=== PATIENT | male | born 1965 | race Hispanic/Latino ===

== ENCOUNTER 2019-01-25 15:53 | Inpatient (IN) | payer BC ==
[~2019-01-25] VITALS: Ht 170.2 cm; Wt 140.2 kg
[~2019-01-25 15:53] MED LIST: AZITHROMYCIN250 MG PO; TAMIFLU75 MG PO
--- OUTSIDE RECORDS SUMMARY | 2019-01-25 15:56 | XMS REPORT ---
[facility] Address Unknown Phone Unavailable Care Team Providers Care Tape Transferrer Name Role Phone Maria R CENTENO Unavailable Unavailable Problems This patient has no known problems. Allergies, Adverse Reactions, Alerts This patient has no known allergies or adverse reactions. Medications This patient has no known medications. Results Test Description Test Time Test Comments Text Results Atomic Results Result Comments CXR 1 [facility] 2019-01-22 07:52:00 [facility] [address] [place] [address] Patient Name: MABEL SHAW MR #: [id number] : 1965 Age/Sex: 53/M Req #: [id number] Adm Physician: Ordered by: HERIBERTO CENTENO MD Report #: [id number] Location: [facility] Room/Bed: Procedure: [id number] HOPD/CXR 1 [facility] Exam Date: 01/22/19 Exam Time: 0751 REPORT STATUS: Signed EXAMINATION: CXR 1 [facility] INDICATION: Short of breath COMPARISON: None FINDINGS: TUBES and LINES: None. LUNGS: Lungs are well inflated. Hazy airspace opacities in the right lower lung and possibly in the left lower lung. PLEURA: No pleural effusion or pneumothorax. HEART AND MEDIASTINUM: The cardiomediastinal silhouette is unremarkable. BONES AND SOFT TISSUES: No acute osseous lesion. Soft tissues are unremarkable. UPPER ABDOMEN: No free air under the diaphragm. IMPRESSION: Findings suspicious for multifocal pneumonia. Recommend follow-up chest radiograph in 6-8 weeks. Signed by: John Pimentel DO on 01/22/2019 7:54 AM Dictated By: JOHN PIMENTEL DO 3 Transcribed By: HOWIE on 01/22/19753 COPY TO: HERIBERTO CENTENO MD
[2019-01-25] MEDS: ALBUTEROL SULF 0.083% NEB SOLN 3 ML NEB NEB SCH (16:01)
[2019-01-25] MEDS ORDERED: AZITHROMYCIN 500MG/SOD CHL 0.9% 250ML BAG IV SCH (16:30)
[2019-01-25] MEDS ORDERED: CEFTRIAXONE SOD 1 GRAM/0.9% SOD CHL 50ML BAG IV SCH (16:30)
[2019-01-25] MEDS ORDERED: ACETAMINOPHEN 325 MG TAB ONE (16:37)
[2019-01-25] MEDS ORDERED: IBUPROFEN 400 MG TAB ONE (16:38)
[2019-01-25] MEDS ORDERED: SODIUM CHLORIDE 0.9% 1000ML 1,000 ML IV STA (16:56)
[2019-01-25] MEDS ORDERED: AZITHROMYCIN 500MG/NS 250 ML 250 ML IV SCH (17:00)
[2019-01-25] MEDS ORDERED: HEPARIN SOD (PORCINE) 5,000 UNIT/ML VIAL SC SCH (17:00)
[2019-01-25] MEDS ORDERED: ACETAMINOPHEN 325 MG TAB PO SCH (18:00)
[2019-01-25 18:01] LABS: BASOPHILS # (AUTO) 0.1 (0.0-0.1); BASOPHILS % 0.9 % (0.0-1.0); EOSINOPHILS # (AUTO) 0.2 (0.0-0.4); EOSINOPHILS % 1.5 % (0.0-6.0); HEMATOCRIT 39.3 % (38.2-49.6); HEMOGLOBIN 13.3 g/dL (14.0-18.0); LYMPHOCYTES # (AUTO) 1.5 (1.0-3.2); LYMPHOCYTES % 15.1 % (18.0-39.1); MEAN CORPUSCULAR HEMOGLOBIN 30.1 pg (28-32); MEAN CORPUSCULAR HGB CONC 33.8 g/dL (31-35); MEAN CORPUSCULAR VOLUME 88.9 fL (81-99); MONOCYTES # (AUTO) 0.6 (0.2-0.8); NEUTROPHILS # (AUTO) 7.5 (2.1-6.9); PLATELET COUNT 267 x10e3/uL (140-360); RED BLOOD COUNT 4.42 x10e6/uL (4.3-5.7); RED CELL DISTRIBUTION WIDTH 14.1 % (11.7-14.4)
[2019-01-25] MEDS: CEFTRIAXONE SOD 1 GM/NS 50 ML 50 ML IV SCH (18:01)
[2019-01-25] MEDS: SODIUM CHLORIDE 0.9% 1000ML 1,000 ML IV SCH (18:01)
[2019-01-25 18:27] LABS: ALANINE AMINOTRANSFERASE 36 IU/L (0-55); ALBUMIN 3.5 g/dL (3.5-5.0); ALBUMIN/GLOBULIN RATIO 0.9 (0.8-2.0); ALKALINE PHOSPHATASE 69 IU/L (40-150); ANION GAP 14.1 mmol/L (8-16); BLOOD UREA NITROGEN 13 mg/dL (7-26); BUN/CREATININE RATIO 11 (6-25); CARBON DIOXIDE 24 mmol/L (22-29); CHLORIDE 103 mmol/L (98-107); CREATININE, SERUM 1.19 mg/dL (0.72-1.25); EST GLOMERULAR FILTRATION RATE > 60 ML/MIN (60-); GLUCOSE 97 mg/dL (74-118); POTASSIUM 4.1 mmol/L (3.5-5.1); SODIUM 137 mmol/L (136-145)
[2019-01-25 20:00] VITALS: BP 144/85
[2019-01-25] MEDS ORDERED: SODIUM CHLORIDE 0.9% 50ML 50 ML ONE (20:14)
[2019-01-25] MEDS ORDERED: AMLODIPINE BESY10 MG PO (20:14)
[2019-01-25] MEDS ORDERED: STRATTERA40 MG PO (20:14)
[2019-01-25] MEDS ORDERED: BUPROPION HCL75 MG PO (20:14)
[2019-01-25] MEDS ORDERED: IOPAMIDOL 370 MG/ML 200 ML INFUS..BTL INJ ONE (20:14)
[2019-01-25] MEDS ORDERED: LOSARTAN POTAS100 MG PO (20:14)
[2019-01-25] MEDS ORDERED: ATORVASTATIN CA20 MG PO (20:14)
[2019-01-25] MEDS ORDERED: PAROXETINE HCL20 MG PO (20:14)
[2019-01-25] MEDS ORDERED: ALPRAZOLAM1 MG PO (20:14)
[2019-01-25] MEDS ORDERED: CEFDINIR300 MG PO (20:14)
--- NOTE | 2019-01-25 20:19 | Diagnostic Imaging Report ---
CT CHEST WITH CONTRAST HISTORY: Pneumonia, cough COMPARISON: Chest radiograph January 22, 2019. TECHNIQUE: CT scan of the chest WITH intravenous contrast, using standard protocol. Coronal and sagittal reformats are provided. IV CONTRAST: 100 cc of Isovue-370. RADIATION DOSE: Total DLP: 1262.09 mGy*cm Dose modulation, iterative reconstruction, and/or weight based adjustment of the mA/kV was utilized to reduce the radiation dose to as low as reasonably achievable. COMPLICATIONS: None FINDINGS: Lines/tubes: None. Lungs and Airways: Patchy interstitial and airspace opacities, most confluent within the left lower lobe, but also within the remaining lobes. Diffuse bronchial wall thickening. Pleura: The pleural spaces are clear. Heart and mediastinum: The thyroid gland is normal. The heart and pericardium are within normal limits. Abdomen: Limited evaluation of the upper abdomen. A 3 cm left adrenal nodule with macroscopic fat and an adjacent 2.9 cm nodule mass or ectopic fat. Scarring of the superior pole of the left kidney. Lap band and partially visualized tubing. Sliding hiatal hernia, containing the proximal stomach. The esophagus is patulous and fluid-filled. Lymph nodes: No pathologically enlarged lymph node identified. Vessels: Unremarkable. Bones: No acute osseous lesion is identified. Soft tissues: Unremarkable IMPRESSION: 1. Given the provided history, findings compatible with multifocal pneumonia. 2. Alternatively, given the sliding hiatal hernia, patulous and fluid-filled esophagus, in the absence of infection aspiration may be a consideration. 3. Two left adrenal myelolipoma. Signed by: Dr. Dakota Soto D.O., M.M.M. on 01/25/2019 8:16 PM
[2019-01-25 21:20] LABS: LYMPHOCYTES % (MANUAL) 13 % (19-48); MONOCYTES % (MANUAL) 3 % (3.4-9.0); MYELOCYTES % (MANUAL) 1 % (0-0); NEUTROPHILS % (MANUAL) 81 % (40-74); PLATELET ESTIMATE ADEQUATE; PLATELET MORPHOLOGY COMMENT NORMAL; RBC MORPHOLOGY COMMENT NORMAL
[2019-01-25 21:21] LABS: ANISOCYTOSIS SLIGHT
[2019-01-25 22:25] VITALS: BP 128/85
[2019-01-25 23:29] LABS: BILIRUBIN,URINE NEGATIVE (NEGATIVE); CLARITY,URINE CLEAR (CLEAR); COLOR,URINE YELLOW (YELLOW); KETONES,URINE NEGATIVE (NEGATIVE); LEUKOCYTE ESTERASE ,URINE NEGATIVE (NEGATIVE); NITRITE,URINE NEGATIVE (NEGATIVE); PROTEIN,URINE DIPSTICK NEGATIVE (NEGATIVE); URINE UROBILINOGEN 0.2 mg/dL (0.2 - 1)
[2019-01-25] MEDS ORDERED: ACETAMINOPHEN 325 MG TAB PO PRN (23:45)
[2019-01-25 23:51] LABS: BACTERIA,URINE RARE /HPF; RBC,URINE 0-5 /HPF (0-5); WBC,URINE (MAN) 0-5 /HPF (0-5)
[2019-01-26] VITALS (8 sets, daily range): BP systolic 98–138; BP diastolic 56–78
[2019-01-26] MEDS: SODIUM CHLORIDE 0.9% 1000ML 1,000 ML IV SCH ×3 (04:33→16:30)
[2019-01-26] MEDS: CEFTRIAXONE SOD 1 GM/NS 50 ML 50 ML IV SCH (04:34)
[2019-01-26 05:27] LABS: BASOPHILS # (AUTO) 0.1 (0.0-0.1); BASOPHILS % 1.1 % (0.0-1.0); EOSINOPHILS # (AUTO) 0.2 (0.0-0.4); EOSINOPHILS % 3.1 % (0.0-6.0); HEMATOCRIT 35.3 % (38.2-49.6); HEMOGLOBIN 11.8 g/dL (14.0-18.0); LYMPHOCYTES # (AUTO) 1.5 (1.0-3.2); LYMPHOCYTES % 28.5 % (18.0-39.1); MEAN CORPUSCULAR HEMOGLOBIN 30.1 pg (28-32); MEAN CORPUSCULAR HGB CONC 33.4 g/dL (31-35); MEAN CORPUSCULAR VOLUME 90.1 fL (81-99); MONOCYTES # (AUTO) 0.6 (0.2-0.8); MONOCYTES % 10.5 % (4.4-11.3); NEUTROPHILS # (AUTO) 2.8 (2.1-6.9); PLATELET COUNT 217 x10e3/uL (140-360); RED BLOOD COUNT 3.92 x10e6/uL (4.3-5.7); RED CELL DISTRIBUTION WIDTH 14.1 % (11.7-14.4)
[2019-01-26 05:47] LABS: ALANINE AMINOTRANSFERASE 27 IU/L (0-55); ALBUMIN 2.8 g/dL (3.5-5.0); ALBUMIN/GLOBULIN RATIO 0.9 (0.8-2.0); ALKALINE PHOSPHATASE 52 IU/L (40-150); ANION GAP 13.8 mmol/L (8-16); BLOOD UREA NITROGEN 13 mg/dL (7-26); BUN/CREATININE RATIO 15 (6-25); CARBON DIOXIDE 22 mmol/L (22-29); CHLORIDE 107 mmol/L (98-107); CREATININE, SERUM 0.89 mg/dL (0.72-1.25); EST GLOMERULAR FILTRATION RATE > 60 ML/MIN (60-); GLUCOSE 90 mg/dL (74-118); POTASSIUM 3.8 mmol/L (3.5-5.1); SODIUM 139 mmol/L (136-145)
[2019-01-26 06:29] LABS: PLATELET ESTIMATE ADEQUATE
[2019-01-26 06:30] LABS: RBC MORPHOLOGY COMMENT NORMAL
--- NOTE | 2019-01-26 06:56 | NUR ---
RECEIVED REPORT FROM CONTROL OPERATOR.
[2019-01-26] MEDS: ALBUTEROL SULF 0.083% NEB SOLN 3 ML NEB NEB SCH ×4 (07:35→20:31)
[2019-01-26] MEDS: IPRATROPIUM BROMIDE 0.02% 2.5 ML NEB NEB SCH ×3 (07:35→20:31)
[2019-01-26] MEDS: BUPROPION HCL 75 MG TAB PO SCH ×2 (09:00→17:00)
[2019-01-26] MEDS: ATOMOXETINE HCL 40 MG PO SCH (09:00)
[2019-01-26] MEDS: PAROXETINE HCL 20 MG TAB PO SCH (09:00)
[2019-01-26] MEDS: OSELTAMIVIR PHOSPHATE 75 MG CAP PO SCH (09:00)
--- NOTE | 2019-01-26 09:00 | NUR ---
RCD PT FROM ER BY WHEEL CHAIR PT IS ALERT AND ORIENTED VITALS CHECKED PT RESTING ON BED ADMISSION ASSESSMENT DONE IV PATENT BY SALINE FLUSH FAMILY AT BED SIDE INSTRUCTED PT AND FAMILY REGARDING HOSPITAL POLICY AND ROUTINE BED LOW AND LOCKED CALL LIGHT IN REACH
[2019-01-26] MEDS: LOSARTAN POTASSIUM 100 MG TAB PO SCH (09:30)
[2019-01-26] MEDS: AMLODIPINE BESYLATE 10 MG TAB PO SCH (09:30)
--- NOTE | 2019-01-26 09:50 | NUR ---
PAGED DR SMITH AND NOTIFIED THE CHEST CT REPORT GOT NEW ORDERS
--- NOTE | 2019-01-26 10:00 | NUR ---
SCDS ON BOTH LEGS
[2019-01-26] MEDS: PIPER-TAZ 3.375 GM 50 ML IV SCH ×3 (11:00→23:00)
[2019-01-26] MEDS: VANCOMYCIN 1GM/NS 250 ML 250 ML IV SCH ×2 (11:45→23:45)
--- NOTE | 2019-01-26 14:20 | NUR ---
Visit made by the Spiritual Care Department Pastoral Visitor, Pau Brantley. PV provided pastoral presence, prayer, hospitality, and supportive listening. Pastoral Visitor informed pt/family of the scope of Physician Specialist Services and availability. BONNY PINO [employer] Spiritual Care Department O: [phone] Pager: [phone] ([phone] number calling from)
--- NOTE | 2019-01-26 18:44 | History and Physical ---
REASON FOR ADMISSION: A 53-year-old male comes in with failed outpatient treatment of pneumonia. HISTORY OF PRESENT ILLNESS: Mr. Mp Waddell with a history of hypertension, was in the usual state of health until about a week ago. The patient was seen in the office, diagnosed with positive influenza, was treated with Tamiflu, but the patient got severely sick, went to the ER, was found to have multifocal pneumonia, and the patient was asked to be admitted. The patient was discharged home on Omnicef and also Zithromax. The patient did not do any better, came to the office yesterday with febrile illness, feeling weak, short of breath, and also with increased pain on breathing. The patient's x-ray was repeated, was found to have multifocal pneumonia, sent to the emergency department. The patient was admitted with CT scan confirming multifocal pneumonia. PAST MEDICAL HISTORY: History of hypertension, history of anxiety, history of hyperlipidemia. PAST SURGICAL HISTORY: Hip replacement, hernia repair, bariatric surgery. MEDICATIONS: Include: 1. Alprazolam 2 mg at bedtime. 2. Amlodipine 10 mg daily. 3. The patient is also taking atorvastatin 20 mg at nighttime. 4. Bupropion 75 mg twice a day. 5. Losartan 100 mg daily. 6. The patient also takes paroxetine 20 mg daily. ALLERGIES: THE PATIENT HAS NO KNOWN DRUG ALLERGIES NOTED. SOCIAL HISTORY: No history of EtOH. No IV drug abuse. Lives with girlfriend at this time. REVIEW OF SYSTEMS: Negative for chest pain. Positive for some shortness of breath. No nausea, vomiting, or diarrhea. No constipation. No rectal bleeding. No hematochezia. Positive on exertional dyspnea. No nausea, vomiting, or diarrhea. No diplopia. Positive for headaches. PHYSICAL EXAMINATION: VITAL SIGNS: Temperature is 97.6, pulse of 73, respirations of 13, blood pressure is 122/77, pulse oximetry of 94% on room air. HEENT: Normocephalic, atraumatic. The patient is obese. CVS: S1 and S2 normal. Regular rate and rhythm. LUNGS: Decreased air entry into bilateral lower lung ritchie. ABDOMEN: Nontender, nondistended. EXTREMITIES: No clubbing, no cyanosis, no edema. LABORATORY VALUES: Chemistry; sodium is 137, potassium 4.1, BUN of 13, creatinine of 1.19. Hematology; white count is 10.06, neutrophil count of 7.5 high with left shift. The patient's urine was essentially negative. ASSESSMENT: 1. A 53-year-old gentleman with multifocal pneumonia. 2. Failed outpatient treatment. 3. Fatigue. 4. Shortness of breath with hypoxia. PLAN: Continue on Zosyn and vancomycin for atypical pneumonias, questionable aspiration secondary to a big hiatal hernia, which was seen on CT scan. We will continue to monitor the patient. He is feeling better. We will cut his fluids down to 70 mL an hour. Regular hypertensive diet will be given to the patient. The patient will be given albuterol and Atrovent treatments q.6 hours. SCDs for DVT prophylaxis and Protonix for GI prophylaxis. Further recommendation per clinical course. The patient's plan is to be discharged in 1 to 2 days and we will see the patient on a daily basis and assess improvement. MD CHEYENNE Nguyen/JUDITHL /[id number]
--- NOTE | 2019-01-26 18:45 | NUR ---
PT RESTING ON BED BED SIDE REPORT GIVEN TO ONCOMING NURSE
--- NOTE | 2019-01-26 19:20 | NUR ---
Patient received sitting up in bed. Family at bedside. AAO x 3. Patient had no complaints of pain. Respirations even and non-labored. IVF infusing at 75 cc/hr. Patient instructed to call for assistance when needed. Call light within reach.
[2019-01-26] MEDS: ALPRAZOLAM 1 MG TAB PO SCH (20:30)
[2019-01-26] MEDS: ATORVASTATIN 20 MG TAB PO SCH (20:30)
[2019-01-27] VITALS (7 sets, daily range): BP systolic 115–145; BP diastolic 64–78
[2019-01-27] MEDS: IPRATROPIUM BROMIDE 0.02% 2.5 ML NEB NEB SCH ×4 (00:49→19:15)
[2019-01-27] MEDS: ALBUTEROL SULF 0.083% NEB SOLN 3 ML NEB NEB SCH ×6 (00:49→23:00)
[2019-01-27] MEDS: PIPER-TAZ 3.375 GM 50 ML IV SCH ×4 (05:00→23:00)
[2019-01-27] MEDS: SODIUM CHLORIDE 0.9% 1000ML 1,000 ML IV SCH ×2 (05:15→09:27)
--- NOTE | 2019-01-27 07:13 | NUR ---
Shift report given to oncoming nurse
[2019-01-27] MEDS: PANTOPRAZOLE SOD 40 MG TABEC PO SCH (08:40)
[2019-01-27] MEDS: AMLODIPINE BESYLATE 10 MG TAB PO SCH (08:40)
[2019-01-27] MEDS: BUPROPION HCL 75 MG TAB PO SCH ×2 (08:40→17:44)
[2019-01-27] MEDS: PAROXETINE HCL 20 MG TAB PO SCH (08:40)
[2019-01-27] MEDS: LOSARTAN POTASSIUM 100 MG TAB PO SCH (08:40)
[2019-01-27] MEDS: OSELTAMIVIR PHOSPHATE 75 MG CAP PO SCH (08:40)
[2019-01-27] MEDS: ATOMOXETINE HCL 40 MG PO SCH (09:00)
--- NOTE | 2019-01-27 09:59 | Progress Note ---
DATE: SUBJECTIVE: A 53-year-old gentleman who came into the hospital, was admitted for multifocal pneumonia. The patient is on Zosyn and vancomycin at this time. No chest pain noted. Shortness of breath is better. The patient's fever is also subsided on IV fluids. MEDICATIONS: Reviewed. PHYSICAL EXAMINATION: VITAL SIGNS: Temperature is 96.4. The patient's pulse oximetry is 93% on room air. Respiratory rate is 18, blood pressure is 134/69. HEENT: Normocephalic, atraumatic. No JVD present. CVS: S1 and S2 normal. Regular rate and rhythm. LUNGS: Decreased air entry into lung bases. Also positive for crackles in the lung bases and rhonchi in the lung bases. ABDOMEN: Nontender, nondistended. EXTREMITIES: No clubbing, no cyanosis, no edema. LABORATORY VALUES: White count has normalized. Chemistries all within normal limits. Chest CT shows bilateral multifocal pneumonia. The patient's microbiology, urine cultures are preliminary, no growth. Blood cultures, no growth. Sputum cultures not done yet. ASSESSMENT: Multifocal pneumonia. PLAN: Continue on Zosyn and vancomycin. The patient is feeling better. We will continue to monitor the patient and possible discharge in 1 to 2 days depending on the progression of disease. The patient is also getting albuterol, Atrovent treatment. The patient also has diabetes, hypertension, hyperlipidemia. We will continue on his home medications for the same. Further recommendation per clinical course. We will continue monitoring the patient. MD CHEYENNE Nguyen/JUDITHL /[id number]
--- NOTE | 2019-01-27 10:35 | NUR ---
Visit made by the Spiritual Care Department Pastoral Visitor, Cristal London. PV provided prayer, hospitality, and communion. Pastoral Visitor informed pt/family of the scope of Railcar Brake Operator Services and availability. BONNY PINO [employer] Spiritual Care Department O: [phone] Pager: [phone] ([phone] number calling from)
[2019-01-27] MEDS: VANCOMYCIN 1GM/NS 250 ML 250 ML IV SCH ×2 (13:30→23:45)
--- NOTE | 2019-01-27 19:25 | NUR ---
Patient received sitting up in bed. AAO x 4. No acute distress noted. Call light within reach.
--- NOTE | 2019-01-27 20:43 | NUR ---
Dr. Rosetta Clark called with order to renew home medications and discontinue IV fluids. Also received new order for CBC and BMP in am. Addendum: 01/27/19 at 2045 by Halie Whitehead RN Note: Disregard above entry . Reason: Wrong patient.
[2019-01-27] MEDS: ALPRAZOLAM 1 MG TAB PO SCH (21:27)
[2019-01-27] MEDS: ATORVASTATIN 20 MG TAB PO SCH (21:27)
[2019-01-28] VITALS (8 sets, daily range): BP systolic 116–133; BP diastolic 57–79
[2019-01-28] MEDS: IPRATROPIUM BROMIDE 0.02% 2.5 ML NEB NEB SCH ×4 (01:45→19:45)
[2019-01-28] MEDS: ALBUTEROL SULF 0.083% NEB SOLN 3 ML NEB NEB SCH ×6 (01:45→23:00)
[2019-01-28 05:03] LABS: BASOPHILS # (AUTO) 0.1 (0.0-0.1); BASOPHILS % 0.9 % (0.0-1.0); EOSINOPHILS # (AUTO) 0.1 (0.0-0.4); EOSINOPHILS % 2.1 % (0.0-6.0); HEMATOCRIT 34.8 % (38.2-49.6); HEMOGLOBIN 11.4 g/dL (14.0-18.0); LYMPHOCYTES # (AUTO) 1.6 (1.0-3.2); LYMPHOCYTES % 24.6 % (18.0-39.1); MEAN CORPUSCULAR HEMOGLOBIN 29.9 pg (28-32); MEAN CORPUSCULAR HGB CONC 32.8 g/dL (31-35); MEAN CORPUSCULAR VOLUME 91.3 fL (81-99); MONOCYTES # (AUTO) 0.6 (0.2-0.8); MONOCYTES % 8.7 % (4.4-11.3); NEUTROPHILS % 59.6 % (38.7-80.0); PLATELET COUNT 239 x10e3/uL (140-360); RED BLOOD COUNT 3.81 x10e6/uL (4.3-5.7); RED CELL DISTRIBUTION WIDTH 14.3 % (11.7-14.4)
[2019-01-28] MEDS: PIPER-TAZ 3.375 GM 50 ML IV SCH ×4 (05:16→23:00)
[2019-01-28 05:19] LABS: BLOOD UREA NITROGEN 16 mg/dL (7-26); BUN/CREATININE RATIO 14 (6-25); CALCIUM 8.4 mg/dL (8.4-10.2); CARBON DIOXIDE 24 mmol/L (22-29); CHLORIDE 108 mmol/L (98-107); CREATININE, SERUM 1.11 mg/dL (0.72-1.25); EST GLOMERULAR FILTRATION RATE > 60 ML/MIN (60-); GLUCOSE 97 mg/dL (74-118); SODIUM 140 mmol/L (136-145)
--- NOTE | 2019-01-28 07:10 | NUR ---
Patient resting comfortably. Shift report given to oncoming nurse.
--- NOTE | 2019-01-28 07:56 | Progress Note ---
DATE: SUBJECTIVE: The patient is here for multifocal pneumonia. The patient is running some low-grade fever, still coughing, still having shortness of breath on exertion. No chest pain. Positive for shortness of breath. No nausea, vomiting, or diarrhea. Still has some chills according to girlfriend's side. OBJECTIVE: VITAL SIGNS: Temperature is 96.9, respirations of 18, blood pressure is 117/65, pulse oximetry of 92% on room air, T-max is 99. HEENT: Normocephalic, atraumatic. The patient is obese. CVS: S1 and S2 normal. Regular rate and rhythm. ABDOMEN: Nontender, nondistended. LUNGS: Positive for rhonchi in the lung base. EXTREMITIES: No clubbing, no cyanosis, or no edema. LABORATORY VALUES: Today's hemoglobin is 11.4, hematocrit of 34.8. Chemistry shows sodium of 140, potassium 4.0. Toxicology, vancomycin trough is 6.3. ASSESSMENT: Multifocal pneumonia, need induced sputum sample. The patient continues to be feverish and short of breath with hypoxia. PLAN: Continue with O2 resuscitation. Albuterol and Atrovent treatment. Continue with antibiotics. The patient needs to be out of bed. Incentive spirometry by the side. Chest x-ray to be repeated today to see progression of the disease. Further recommendation per clinical course. We will continue all of his regular home medications at this time. MD CHEYENNE Nguyen/JUDITHL /[id number]
[2019-01-28] MEDS: ATOMOXETINE HCL 40 MG PO SCH (09:00)
[2019-01-28] MEDS: PAROXETINE HCL 20 MG TAB PO SCH (09:00)
[2019-01-28] MEDS: PANTOPRAZOLE SOD 40 MG TABEC PO SCH (09:00)
[2019-01-28] MEDS: AMLODIPINE BESYLATE 10 MG TAB PO SCH (09:00)
[2019-01-28] MEDS: OSELTAMIVIR PHOSPHATE 75 MG CAP PO SCH (09:00)
[2019-01-28] MEDS: BUPROPION HCL 75 MG TAB PO SCH ×2 (09:00→18:08)
[2019-01-28] MEDS: LOSARTAN POTASSIUM 100 MG TAB PO SCH (09:00)
--- NOTE | 2019-01-28 12:14 | Diagnostic Imaging Report ---
EXAMINATION: CHEST SINGLE (PORTABLE) INDICATION: Cough COMPARISON: Chest CT of 01/25/2019 FINDINGS: LINES/TUBES:None LUNGS:The lungs are well-inflated. Subtle multifocal patchy opacities in both lungs left greater than right. PLEURA:No pleural effusion or pneumothorax. MEDIASTINUM:The cardiomediastinal silhouette appears unchanged in size and shape. BONES/SOFT TISSUES:No acute osseous injury. ABDOMEN:No free air under the diaphragm. IMPRESSION: Subtle multifocal patchy opacities left greater than right correspond with findings on CT of 01/17/2019 and are consistent with multifocal pneumonia. Signed by: Estefani Sol MD on 01/28/2019 12:11 PM
[2019-01-28] MEDS: VANCOMYCIN 1GM/NS 250 ML 250 ML IV SCH (13:00)
--- NOTE | 2019-01-28 19:25 | NUR ---
Patient received sitting up in bed. Family at bedside. AAO x 4. No acute distress noted. Patient encouraged to use Incentive Spirometer . Fall precautions implemented. Call light within reach.
[2019-01-28] MEDS: ALPRAZOLAM 1 MG TAB PO SCH (21:27)
[2019-01-28] MEDS: ATORVASTATIN 20 MG TAB PO SCH (21:27)
[2019-01-29] MEDS: IPRATROPIUM BROMIDE 0.02% 2.5 ML NEB NEB SCH ×2 (01:00→06:30)
[2019-01-29] MEDS: ALBUTEROL SULF 0.083% NEB SOLN 3 ML NEB NEB SCH ×2 (03:00→06:30)
[2019-01-29 04:00] VITALS: BP 109/77
[2019-01-29 05:31] LABS: ANION GAP 11.2 mmol/L (8-16); BLOOD UREA NITROGEN 12 mg/dL (7-26); BUN/CREATININE RATIO 12 (6-25); CALCIUM 8.7 mg/dL (8.4-10.2); CARBON DIOXIDE 26 mmol/L (22-29); CHLORIDE 106 mmol/L (98-107); CREATININE, SERUM 0.99 mg/dL (0.72-1.25); EST GLOMERULAR FILTRATION RATE > 60 ML/MIN (60-); GLUCOSE 98 mg/dL (74-118); POTASSIUM 4.2 mmol/L (3.5-5.1); SODIUM 139 mmol/L (136-145)
--- NOTE | 2019-01-29 07:52 | Progress Note ---
DATE: SUBJECTIVE: The patient is a 53-year-old gentleman, who came with the patient failed pneumonia treatment. The patient is currently feeling better. Shortness of breath has resolved. No chest pain. Has been afebrile for the last 48 hours. OBJECTIVE: VITAL SIGNS: The patient's temperature is 96.4, pulse is 74, respirations of 16, blood pressure is 109/77, and pulse oximetry of 97% on room air. HEENT: Normocephalic and atraumatic. Pupils are reactive to light and accommodation. CVS: S1 and S2 normal. Regular rate and rhythm. LUNGS: Positive for some rhonchi, but much better air entry. EXTREMITIES: No clubbing, no cyanosis, no edema. LABORATORY VALUES: From yesterday, white count is normalized with no left shift present. The patient's sodium was 139, potassium 4.2, BUN and creatinine normal. Toxicology, vancomycin levels are normal. Microbiology, blood cultures, no growth. Gram stain sputum is still pending. IMAGING STUDIES: It was done yesterday, shows subtle multifocal patchy opacities, left greater than right corresponds with finding on CT and consists of multifocal pneumonia. ASSESSMENT: Clinically, the patient has improved dramatically. We can discharge the patient home on p.o. Levaquin and albuterol and Atrovent treatments at home. The patient will be followed up by me on Friday to see resolution. Further recommendation per clinical course other diagnoses include hypertension, hyperlipidemia, and obesity. We will discharge the patient on Levaquin. Further recommendation per clinical course. MD CHEYENNE Nguyen/ROD /[id number]
[2019-01-29 08:00] VITALS: BP 172/72
[2019-01-29] MEDS: ATOMOXETINE HCL 40 MG PO SCH (08:17)
[2019-01-29] MEDS: PANTOPRAZOLE SOD 40 MG TABEC PO SCH (08:23)
[2019-01-29] MEDS: BUPROPION HCL 75 MG TAB PO SCH (08:24)
[2019-01-29] MEDS: LOSARTAN POTASSIUM 100 MG TAB PO SCH (08:24)
[2019-01-29] MEDS: PAROXETINE HCL 20 MG TAB PO SCH (08:24)
[2019-01-29] MEDS: OSELTAMIVIR PHOSPHATE 75 MG CAP PO SCH (08:24)
[2019-01-29] MEDS: AMLODIPINE BESYLATE 10 MG TAB PO SCH (08:24)
[2019-01-29 08:25] VITALS: BP 172/72
[2019-01-29] MEDS ORDERED: LEVAQUIN500 MG PO (09:40)
== END 2019-01-29 10:36 | disposition home or self-care (01) | DRG 194 ==
LOC: ER 15:53 → ERHOLD 16:52 → MED/SURG2 01-26 09:10
PROVIDERS: ADMIT Family Medicine; ATTEND Family Medicine
DX: J18.9 Pneumonia, unspecified organism (principal); Z68.42 Body mass index [BMI] 45.0-49.9, adult; R09.02 Hypoxemia; I10 Essential (primary) hypertension; K44.9 Diaphragmatic hernia without obstruction or gangrene; E78.5 Hyperlipidemia, unspecified; E66.9 Obesity, unspecified; E66.01 Morbid (severe) obesity due to excess calories
CPT/HCPCS: 36415; 71045; 71260; 80048; 80053; 80202; 81001; 83605; 85025; 87040; 87070; 87086; 87205; 93005; 94640; 99284; J0456; J0696; J1644; J2543; J3370; J7030; Q9967

== ENCOUNTER 2019-09-28 04:49 | Emergency (ER) | payer BC ==
[~2019-09-28] VITALS: Ht 170.2 cm; Wt 140.2 kg
[~2019-09-28 04:49] MED LIST changes: +ALPRAZOLAM1 MG PO; +AMLODIPINE BESY10 MG PO; +ATORVASTATIN CA20 MG PO; +BUPROPION HCL75 MG PO; +CEFDINIR300 MG PO; +LEVAQUIN500 MG PO; +LOSARTAN POTAS100 MG PO; +PAROXETINE HCL20 MG PO; +STRATTERA40 MG PO
--- NOTE | 2019-09-28 09:52 | Diagnostic Imaging Report ---
EXAM: CHEST SINGLE (PORTABLE) DATE: 09/28/2019 8:59 AM INDICATION: Shortness of breath COMPARISON: 01/28/2019 FINDINGS: The trachea is midline. There are mildly increased patchy opacities present within the left lower lung zone. There is no evidence for large focal consolidation, pneumothorax, or significant pleural effusion. The cardiomediastinal silhouette is within normal limits. No acute osseous abnormality is identified. IMPRESSION: Mildly increased patchy opacities identified within the left lower lung zone which may reflect atelectasis. A developing infectious/inflammatory process cannot be entirely excluded. No evidence for lobar consolidation. Signed by: Dr. Davon Ford MD on 09/28/2019 9:48 AM
--- NOTE | 2019-09-28 10:10 | Emergency Department Note ---
History of Present Illnes History of Present Illness Chief Complaint: COVID PUI History of Present Illness This is a 53 year old male presents with fever cough malaise of 2 weeks duration . Historian: Patient Arrival Mode: Car Onset (how long ago): week(s) (2) Onset quality: gradual Duration (how long): week(s) Timing of current episode: constant Progression: worsening Context: Reports recent illness Relieving factors: none Exacerbating factors: none Associated symptoms: Reports cough, Reports fever/chills, Reports malaise Treatments prior to arrival: none Past Medical/Family History Physician Review I have reviewed the patient's past medical and family history. Any updates have been documented here. Past Medical History Recent Fever: Yes Clinical Suspicion of Infectio: Yes New/Unexplained Change in Ment: No Past Medical History: Hypertension, Anxiety, Depression, Hyperlipedemia Other Medical History: PROSTATE Past Surgical History: Hernia Repair Other Surgery: HIP SX ABDOMINAL SX Social History Smoking Cessation: Never Smoker Alcohol Use: None Any Illegal Drug Use: No TB Exposure/Symptoms: No Physically hurt or threatened: No Other Any Pre-Existing Lines (PICC,: No Is patient up to date on immun: Yes Last Flu: UTD Last Pneumovax: UTD Review of Systems Review of Systems Constitutional: Reports fever, Reports malaise, Reports weakness EENTM: Reports no symptoms Cardiovascular: Reports no symptoms Respiratory: Reports cough Gastrointestinal: Reports no symptoms Genitourinary: Reports no symptoms Musculoskeletal: Reports no symptoms Integumentary: Reports no symptoms Neurological: Reports no symptoms Psychological: Reports no symptoms Endocrine: Reports no symptoms Hematological/Lymphatic: Reports no symptoms Physical Exam Related Data Allergies: Coded Allergies: No Known Allergies (Unverified , 01/26/19) Triage Vital Signs Vital Signs Date Time Temp Pulse Resp B/P (MAP) Pulse Ox O2 Delivery O2 Flow Rate FiO2 09/28/19 05:45 100.9 93 20 145/91 94 Vital signs reviewed: Yes Physical Exam CONSTITUTIONAL Constitutional: Present well-developed, Present ill appearing HENT HENT: Present normocephalic, Present atraumatic, Present oropharynx narinder r/moist, Present nose normal HENT L/R: Present left ext ear normal, Present right ext ear normal EYES Eyes: Reports PERRL, Reports conjunctivae normal NECK Neck: Present ROM normal PULMONARY Pulmonary: Present effort normal, Present breath sounds normal CARDIOVASCULAR Cardiovascular: Present regular rhythm, Present heart sounds normal, Present capillary refill normal, Present normal rate GASTROINTESTINAL Abdominal: Present soft, Present nontender, Present bowel sounds normal GENITOURINARY Genitourinary: Present exam deferred SKIN Skin: Present warm, Present dry MUSCULOSKELETAL Musculoskeletal: Present ROM normal NEUROLOGICAL Neurological: Present alert, Present oriented x 3, Present no gross motor or sensory deficits PSYCHOLOGICAL Psychological: Present mood/affect normal, Present judgement normal Results Imaging Imaging results reviewed: Yes Impressions [place] [address] Patient Name: MABEL SHAW MR #: [id number] : 1965 Age/Sex: 53/M Req #: [id number] Adm Physician: Ordered by: JOEL MALAVE DO Report #: [id number] Location: ER Room/Bed: Procedure: [id number] DX/CHEST SINGLE (PORTABLE) Exam Date: Exam Time: REPORT STATUS: Signed EXAM: CHEST SINGLE (PORTABLE) DATE: 09/28/2019 8:59 AM INDICATION: Shortness of breath COMPARISON: 01/28/2019 FINDINGS: The trachea is midline. There are mildly increased patchy opacities present within the left lower lung zone. There is no evidence for large focal consolidation, pneumothorax, or significant pleural effusion. The cardiomediastinal silhouette is within normal limits. No acute osseous abnormality is identified. IMPRESSION: Mildly increased patchy opacities identified within the left lower lung zone which may reflect atelectasis. A developing infectious/inflammatory process cannot be entirely excluded. No evidence for lobar consolidation. Signed by: Dr. Davon Ford MD on 09/28/2019 9:48 AM Dictated By: DAVON FORD MD 7 Transcribed By: HOWIE on 09/28/19947 COPY TO: JOEL MALAVE DO~ Assessment & Plan Medical Decision Making MDM 53 yom with fever and myalgias. (+) contact with family members with similiar symptoms. COVID-19 highly suspected but testing deferred secondary to stable vital signs and improving oxygen saturation on RA. Patient to be given Rx Azithromycin and albuterol. Patient to be given resources for outpatient testing centers Assessment & Plan Final Impression: (1) Hypoxia (2) Pneumonia Depart Disposition: HOME, SELF-CARE Last Vital Signs Date Time Temp Pulse Resp B/P (MAP) Pulse Ox O2 Delivery O2 Flow Rate FiO2 09/28/19 10:01 98.3 86 20 130/90 98 Home Meds Reported Medications Levofloxacin (LEVAQUIN) 500 Mg Tablet, 500 MG PO DAILY, TAB 01/29/19 Losartan Potassium (LOSARTAN POTASSIUM) 100 Mg Tablet, 100 MG PO DAILY, TAB 01/25/19 Amlodipine Besylate (AMLODIPINE BESYLATE) 10 Mg Tablet, 10 MG PO DAILY, #30 TAB 01/25/19 Alprazolam (ALPRAZOLAM) 1 Mg Tablet, 2 MG PO HS, #30 TAB 01/25/19 Atorvastatin Calcium (ATORVASTATIN CALCIUM) 20 Mg Tablet, 20 MG PO HS, #30 TAB 01/25/19 Bupropion Hcl (BUPROPION HCL) 75 Mg Tablet, 75 MG PO BID, #30 TAB 01/25/19 Paroxetine Hcl (PAROXETINE HCL) 20 Mg Tablet, 40 MG PO DAILY, #30 TAB 01/25/19 Atomoxetine Hcl (STRATTERA) 40 Mg Capsule, 40 MG PO DAILY 01/25/19 KEENAN LOCK DO Sep 28, 2019 10:10
== END 2019-09-28 10:06 | disposition home or self-care (01) ==
LOC: ER 05:58
DX: R09.02 Hypoxemia (principal); J18.9 Pneumonia, unspecified organism; R05 Cough; R50.9 Fever, unspecified; Z11.59 Encounter for screening for other viral diseases
CPT/HCPCS: 71045; 99283

== ENCOUNTER 2019-10-01 07:07 | Emergency (ER) | payer BC, OTHER ==
[~2019-10-01] VITALS: Ht 170.2 cm; Wt 140.2 kg
[2019-10-01] MEDS ORDERED: KETOROLAC TROMETHAMINE 30 MG/ML VIAL IV STA (07:19)
[2019-10-01] MEDS ORDERED: SODIUM CHLORIDE 0.9% 1000ML 1,000 ML IV STA (07:19)
[2019-10-01] MEDS ORDERED: CEFTRIAXONE SOD 1 GM/NS 50 ML 50 ML IV STA (07:19)
[2019-10-01] MEDS ORDERED: AZITHROMYCIN 500MG/NS 250 ML 250 ML IV STA (07:19)
[2019-10-01] MEDS ORDERED: ALBUTEROL SULFATE HFA 8GM INHALATION AEROSOL INH PRN (07:30)
[2019-10-01] MEDS ORDERED: DEXAMETHASONE SOD PHOS 10 MG/1 ML VIAL IM ONE (07:30)
[2019-10-01] MEDS ORDERED: ACETAMINOPHEN/CODEINE ELIX 120-12 MG/5 ML UDC NG ONE (07:30)
[2019-10-01] MEDS ORDERED: AZITHROMYCIN 500MG/NS 250 ML 250 ML ONE (07:43)
--- NOTE | 2019-10-01 08:01 | Emergency Department Note ---
History of Present Illnes History of Present Illness Chief Complaint: COVID PUI History of Present Illness This is a 53 year old male . c/o cough sob x 1 wk recently tested pos for covid Historian: Patient Arrival Mode: Car Severity: mild Onset quality: gradual Duration (how long): week(s) Progression: worsening Context: Reports recent illness Relieving factors: none Exacerbating factors: none Associated symptoms: Reports cough, Reports fever/chills, Reports shortness of breath Treatments prior to arrival: none Past Medical/Family History Physician Review I have reviewed the patient's past medical and family history. Any updates have been documented here. Past Medical History Recent Fever: Yes Clinical Suspicion of Infectio: Yes New/Unexplained Change in Ment: No Past Medical History: Hypertension, Anxiety, Depression, Hyperlipedemia Other Medical History: PROSTATE Past Surgical History: Hernia Repair Other Surgery: HIP SX ABDOMINAL SX Social History Smoking Cessation: Never Smoker Counseling Performed: No Alcohol Use: Occasional Any Illegal Drug Use: No Physically hurt or threatened: No Other Any Pre-Existing Lines (PICC,: No Review of Systems Review of Systems Constitutional: Reports chills, Reports fever, Reports malaise EENTM: Reports no symptoms Cardiovascular: Reports no symptoms Respiratory: Reports cough Gastrointestinal: Reports no symptoms Genitourinary: Reports no symptoms Musculoskeletal: Reports no symptoms Integumentary: Reports no symptoms Neurological: Reports no symptoms Psychological: Reports no symptoms Endocrine: Reports no symptoms Hematological/Lymphatic: Reports no symptoms Physical Exam Related Data Allergies: Coded Allergies: No Known Allergies (Unverified , 01/26/19) Triage Vital Signs Vital Signs Date Time Temp Pulse Resp B/P (MAP) Pulse Ox O2 Delivery O2 Flow Rate FiO2 10/01/19 07:12 97.0 81 22 121/79 95 Room Air Vital signs reviewed: Yes Physical Exam CONSTITUTIONAL Constitutional: Present well-developed, Present well-nourished HENT HENT: Present normocephalic, Present atraumatic, Present oropharynx clear/moist, Present nose normal HENT L/R: Present left ext ear normal, Present right ext ear normal EYES Eyes: Reports PERRL, Reports conjunctivae normal NECK Neck: Present ROM normal PULMONARY Pulmonary: Present effort normal, Present other (notd diminished breath sounds lower lobes o2 sat 94% rm air resp 22) CARDIOVASCULAR Cardiovascular: Present regular rhythm, Present heart sounds normal, Present capillary refill normal, Present normal rate GASTROINTESTINAL Abdominal: Present soft, Present nontender, Present bowel sounds normal GENITOURINARY Genitourinary: Present exam deferred SKIN Skin: Present warm, Present dry MUSCULOSKELETAL Musculoskeletal: Present ROM normal NEUROLOGICAL Neurological: Present alert, Present oriented x 3, Present no gross motor or sensory deficits PSYCHOLOGICAL Psychological: Present mood/affect normal, Present judgement normal Results Laboratory Laboratory Laboratory Tests Test 10/01/19 08:00 White Blood Count 4.93 x10e3/uL (4.8-10.8) Red Blood Count 4.26 x10e6/uL (4.3-5.7) Hemoglobin 12.4 g/dL (14.0-18.0) Hematocrit 37.5 % (38.2-49.6) Mean Corpuscular Volume 88.0 fL (81-99) Mean Corpuscular Hemoglobin 29.1 pg (28-32) Mean Corpuscular Hemoglobin Concent 33.1 g/dL (31-35) Red Cell Distribution Width 14.3 % (11.7-14.4) Platelet Count 270 x10e3/uL (140-360) Neutrophils (%) (Auto) 63.4 % (38.7-80.0) Lymphocytes (%) (Auto) 24.5 % (18.0-39.1) Monocytes (%) (Auto) 7.9 % (4.4-11.3) Eosinophils (%) (Auto) 1.8 % (0.0-6.0) Basophils (%) (Auto) 1.0 % (0.0-1.0) Neutrophils # (Auto) 3.1 (2.1-6.9) Lymphocytes # (Auto) 1.2 (1.0-3.2) Monocytes # (Auto) 0.4 (0.2-0.8) Eosinophils # (Auto) 0.1 (0.0-0.4) Basophils # (Auto) 0.1 (0.0-0.1) Absolute Immature Granulocyte (auto 0.07 x10e3/uL (0-0.1) Sodium Level 143 mmol/L (136-145) Potassium Level 3.8 mmol/L (3.5-5.1) Chloride Level 110 mmol/L (98-107) Carbon Dioxide Level 25 mmol/L (22-29) Anion Gap 11.8 mmol/L (8-16) Blood Urea Nitrogen 13 mg/dL (7-26) Creatinine 1.00 mg/dL (0.72-1.25) Estimat Glomerular Filtration Rate > 60 ML/MIN (60-) BUN/Creatinine Ratio 13 (6-25) Glucose Level 99 mg/dL (74-118) Lactic Acid Level 1.7 mmol/L (0.5-2.0) Calcium Level 9.0 mg/dL (8.4-10.2) Total Bilirubin 0.3 mg/dL (0.2-1.2) Aspartate Amino Transf (AST/SGOT) 19 IU/L (5-34) Alanine Aminotransferase (ALT/SGPT) 31 IU/L (0-55) Alkaline Phosphatase 65 IU/L (40-150) Total Protein 6.9 g/dL (6.5-8.1) Albumin 3.6 g/dL (3.5-5.0) Globulin 3.3 g/dL (2.3-3.5) Albumin/Globulin Ratio 1.1 (0.8-2.0) Lab results reviewed: Yes Imaging Impressions EXAMINATION: CHEST SINGLE (PORTABLE) INDICATION: ^Y ^cough ^[id number] ^[id number] COMPARISON: 09/28/2019 FINDINGS: AP view TUBES and LINES: None. LUNGS: Lungs are well inflated. Improving left lower lobe reticular opacities. Bilateral hilar peribronchial wall thickening. No new consolidations. PLEURA: No pleural effusion or pneumothorax. HEART AND MEDIASTINUM: The cardiomediastinal silhouette is unremarkable.. BONES AND SOFT TISSUES: No acute osseous lesion. Soft tissues are unremarkable. UPPER ABDOMEN: No free air under the diaphragm. IMPRESSION: Left lower lobe reticular opacities have decreased with persistent bilateral hilar peribronchial wall thickening suggestive of resolving infection, including viral. Signed by: Dr. Tami Sarkar M.D. on 10/01/2019 8:51 AM Dictated By: TAMI SARKAR MD 0 Transcribed By: HOWIE on 10/01/19850 Assessment & Plan Medical Decision Making MDM 53y m presented to ed c/o cough sob chills body aches x 1 wk recently tested pos for covid - seen several times had 2 rounds of abx - ordered lab cxr pt medicated w/ toradol tylenol #3 elixir rocephin azithromax r/o pne Reassessment Reassessment discussed lab rad results plan of care and f/u instructions - pt reports feeling 100% better nad d/c home w/ zithromax 500mg qd x 5 days / tylneol w/ codiene / prednisone / albuterol inh Assessment & Plan Final Impression: (1) Bronchitis (2) Pneumonia Depart Disposition: HOME, SELF-CARE Last Vital Signs Date Time Temp Pulse Resp B/P (MAP) Pulse Ox O2 Delivery O2 Flow Rate FiO2 10/01/19 07:12 97.0 81 22 121/79 95 Room Air Home Meds Reported Medications Levofloxacin (LEVAQUIN) 500 Mg Tablet, 500 MG PO DAILY, TAB 01/29/19 Losartan Potassium (LOSARTAN POTASSIUM) 100 Mg Tablet, 100 MG PO DAILY, TAB 01/25/19 Amlodipine Besylate (AMLODIPINE BESYLATE) 10 Mg Tablet, 10 MG PO DAILY, #30 TAB 01/25/19 Alprazolam (ALPRAZOLAM) 1 Mg Tablet, 2 MG PO HS, #30 TAB 01/25/19 Atorvastatin Calcium (ATORVASTATIN CALCIUM) 20 Mg Tablet, 20 MG PO HS, #30 TAB 01/25/19 Bupropion Hcl (BUPROPION HCL) 75 Mg Tablet, 75 MG PO BID, #30 TAB 01/25/19 Paroxetine Hcl (PAROXETINE HCL) 20 Mg Tablet, 40 MG PO DAILY, #30 TAB 01/25/19 Atomoxetine Hcl (STRATTERA) 40 Mg Capsule, 40 MG PO DAILY 01/25/19 Medications in the ED Sodium Chloride 1,000 ml @ 0 mls/hr Q0M STAT IV ; Start 10/01/19 at 07:19; Stop 10/01/19 at 07:27; Status DC Ceftriaxone Sodium 50 ml @ 50 mls/hr ONCE STAT IV ; Start 10/01/19 at 07:19; S top 10/01/19 at 08:18 Azithromycin 250 ml @ 125 mls/hr ONCE STAT IV ; Start 10/01/19 at 07:19; Stop 10/01/19 at 09:18 Ketorolac Tromethamine 30 mg ONCE STAT IV ; Start 7/3/20 at 07:19; Stop 10/01/19 at 07:36; Status DC Dexamethasone Sodium Phosphate 10 mg ONCE ONCE IM ; Start 10/01/19 at 07:30; Stop 10/01/19 at 07:36; Status DC Acetaminophen/ Codeine Phosphate 10 ml ONCE ONCE NG ; Start 10/01/19 at 07:30; Stop 10/01/19 at 07:35; Status DC Albuterol 1 INH RQ4H PRN INH SHORTNESS OF BREATH; Start 10/01/19 at 07:30; Stop 10/31/19 at 07:29 Ipratropium [place] RQ6H INH ; Start 10/01/19 at 13:00; Stop 10/31/19 at 12:59; Status UNV Azithromycin 250 ml @ [facility] ONCE .ROUTE ; Start 10/01/19 at 07:43; Stop 10/01/19 at 07:37; Status DC Physician Attestation Provider Attestation o2 say 97% rm DARRELL Rich Oct 01, 2019 08:01
[2019-10-01 08:20] LABS: BASOPHILS # (AUTO) 0.1 (0.0-0.1); EOSINOPHILS # (AUTO) 0.1 (0.0-0.4); EOSINOPHILS % 1.8 % (0.0-6.0); HEMATOCRIT 37.5 % (38.2-49.6); HEMOGLOBIN 12.4 g/dL (14.0-18.0); LYMPHOCYTES # (AUTO) 1.2 (1.0-3.2); LYMPHOCYTES % 24.5 % (18.0-39.1); MEAN CORPUSCULAR HEMOGLOBIN 29.1 pg (28-32); MEAN CORPUSCULAR HGB CONC 33.1 g/dL (31-35); MONOCYTES # (AUTO) 0.4 (0.2-0.8); MONOCYTES % 7.9 % (4.4-11.3); NEUTROPHILS # (AUTO) 3.1 (2.1-6.9); NEUTROPHILS % 63.4 % (38.7-80.0); PLATELET COUNT 270 x10e3/uL (140-360); RED BLOOD COUNT 4.26 x10e6/uL (4.3-5.7); RED CELL DISTRIBUTION WIDTH 14.3 % (11.7-14.4)
[2019-10-01 08:39] LABS: ALANINE AMINOTRANSFERASE 31 IU/L (0-55); ALBUMIN 3.6 g/dL (3.5-5.0); ALBUMIN/GLOBULIN RATIO 1.1 (0.8-2.0); ALKALINE PHOSPHATASE 65 IU/L (40-150); ANION GAP 11.8 mmol/L (8-16); BLOOD UREA NITROGEN 13 mg/dL (7-26); BUN/CREATININE RATIO 13 (6-25); CARBON DIOXIDE 25 mmol/L (22-29); CHLORIDE 110 mmol/L (98-107); EST GLOMERULAR FILTRATION RATE > 60 ML/MIN (60-); GLUCOSE 99 mg/dL (74-118); POTASSIUM 3.8 mmol/L (3.5-5.1); SODIUM 143 mmol/L (136-145)
--- NOTE | 2019-10-01 08:54 | Diagnostic Imaging Report ---
EXAMINATION: CHEST SINGLE (PORTABLE) INDICATION: ^Y ^cough ^[id number] ^[id number] COMPARISON: 09/28/2019 FINDINGS: AP view TUBES and LINES: None. LUNGS: Lungs are well inflated. Improving left lower lobe reticular opacities. Bilateral hilar peribronchial wall thickening. No new consolidations. PLEURA: No pleural effusion or pneumothorax. HEART AND MEDIASTINUM: The cardiomediastinal silhouette is unremarkable.. BONES AND SOFT TISSUES: No acute osseous lesion. Soft tissues are unremarkable. UPPER ABDOMEN: No free air under the diaphragm. IMPRESSION: Left lower lobe reticular opacities have decreased with persistent bilateral hilar peribronchial wall thickening suggestive of resolving infection, including viral. Signed by: Dr. Madonna Reynoso M.D. on 10/01/2019 8:51 AM
[2019-10-01 11:56] VITALS: BP 126/89
[2019-10-01] MEDS ORDERED: IPRATROPIUM BROMIDE INHALER 12.9 GM INH INH SCH (13:00)
[2019-10-01] MEDS ORDERED: IPRATROPIUM/ALBUTEROL SULFATE 4 GM INH INH SCH (13:00)
== END 2019-10-01 12:46 | disposition home or self-care (01) ==
LOC: ER 07:30
DX: J18.9 Pneumonia, unspecified organism (principal); J40 Bronchitis, not specified as acute or chronic; R05 Cough; R06.02 Shortness of breath; I10 Essential (primary) hypertension; E78.5 Hyperlipidemia, unspecified; F41.9 Anxiety disorder, unspecified; F32.9 Major depressive disorder, single episode, unspecified; Z11.59 Encounter for screening for other viral diseases
CPT/HCPCS: 36415; 71045; 80053; 83605; 85025; 87040; 87635; 99284; J0456; J0696; J1100; J1885; J7030

== ENCOUNTER 2020-08-07 13:38 | Emergency (ER) | payer BC, MEDICAID ==
[~2020-08-07] VITALS: Ht 170.2 cm; Wt 140.2 kg
[2020-08-07 17:31] VITALS: BP 132/62
== END 2020-08-07 17:31 | disposition home or self-care (01) ==
LOC: ER 15:17
DX: R05 Cough (principal); R51.9 Headache, unspecified; R55 Syncope and collapse; I10 Essential (primary) hypertension; E78.5 Hyperlipidemia, unspecified; F41.9 Anxiety disorder, unspecified; F32.9 Major depressive disorder, single episode, unspecified
CPT/HCPCS: 70450; 71046; 93005; 99284